=== PATIENT | male | born 1930 | race Caucasian/White ===

== ENCOUNTER 2019-10-25 23:00 | Emergency (ER) | payer MEDICARE ==
[~2019-10-25 23:00] MED LIST: LEVO500T2 PO; METO50 PO; PRAV10TA39 PO; RIVA20TA PO; SOLI5 PO; VERA180T12 PO
[2019-10-25 23:43] LABS: BASOPHILS % (AUTO) 0.5 % (0.0-5.0); HEMATOCRIT 35.2 % (42-54); LYMPHOCYTES % (AUTO) 11.4 % (21.0-51.0); MEAN CORPUSCULAR HEMOGLOBIN 30.3 pg (27.0-33.0); MEAN CORPUSCULAR HGB CONC 33.2 g/dL (32.0-36.0); MEAN CORPUSCULAR VOLUME 91.2 fL (79-99); MONOCYTES % (AUTO) 9.7 % (3.0-13.0); NEUTROPHILS % (AUTO) 75.1 % (40.0-77.0); PLATELET COUNT (AUTO) 57 K/uL (130-400); RED BLOOD CELL COUNT(AUTO) 3.86 MIL/uL (4.50-6.20); RED CELL DISTRIBUTION WIDTH 12.9 % (11.0-15.5)
[2019-10-25 23:53] LABS: CREATININE 1.3 mg/dL (0.5-1.5)
[2019-10-25 23:58] LABS: ALBUMIN 3.5 g/dL (3.5-5.0); BILIRUBIN,TOTAL 0.5 mg/dL (0.2-1.0); TOTAL PROTEIN, SERUM 7.1 g/dL (6.0-8.3)
[2019-10-26] MEDS ORDERED: IPRATROPIUM/ALBUTEROL SULFATE 3 ML SOLUTION IH ONE (00:46)
[2019-10-26] MEDS ORDERED: OSELTAMIVIR PHOSPHATE 75 MG CAP ONE (03:02)
[2019-10-26] MEDS ORDERED: ONDANSETRON ODT 4 MG TAB ONE (03:02)
== END 2019-10-26 03:07 | disposition home or self-care (01) ==
LOC: EDH 23:00
DX: J10.1 Influenza due to other identified influenza virus with other respiratory manifestations (principal); J20.8 Acute bronchitis due to other specified organisms; I48.91 Unspecified atrial fibrillation; E11.9 Type 2 diabetes mellitus without complications; E78.00 Pure hypercholesterolemia, unspecified
CPT/HCPCS: 36415; 71046; 80053; 85025; 87804; 94640